=== PATIENT | male | born 1990 ===

== ENCOUNTER 2020-03-02 09:46 | Inpatient (IN) | payer OTHER ==
[~2020-03-02] VITALS: Ht 162.6 cm; Wt 84.6 kg
[2020-03-02] MEDS ORDERED: ACETAMINOPHEN 325 MG TABLET PO PRN ×2 (10:30→19:15)
[2020-03-02] MEDS ORDERED: ONDANSETRON HCL 4 MG/2 ML VIAL IVP PRN ×2 (10:30→19:15)
[2020-03-02 11:11] LABS: BASOPHILS % (AUTO) 0.5 % (0.0-2.0); HEMATOCRIT 46.1 % (41-53); HEMOGLOBIN 15.6 g/dL (13.5-17.5); LYMPHOCYTES # (AUTO) 2.1 K/uL (1.0-4.8); LYMPHOCYTES % (AUTO) 27.1 % (22.0-44.0); MEAN CORPUSCULAR HEMOGLOBIN 30.5 pg (26.0-34.0); MEAN CORPUSCULAR HGB CONC 33.8 G/dL (31.0-37.0); MEAN CORPUSCULAR VOLUME 90 fL (80-100); MONOCYTES # (AUTO) 0.6 K/uL (0.1-1.0); MONOCYTES % (AUTO) 7.8 % (2.0-9.0); NEUTROPHILS # (AUTO) 4.8 K/uL (1.8-7.7); NEUTROPHILS % (AUTO) 63.6 % (40.0-70.0); PLATELET COUNT (AUTO) 313 K/uL (150-450); RED BLOOD CELL COUNT(AUTO) 5.11 MIL/uL (4.50-5.90); RED CELL DISTRIBUTION WIDTH 14.8 % (11.5-14.5)
[2020-03-02 11:28] LABS: ANION GAP 6 mmol/L (8-16); CALCIUM, TOTAL 9.1 mg/dL (8.8-10.5); CARBON DIOXIDE 28 mmol/L (22-29); CHLORIDE 103 mmol/L (98-107); CREATININE 0.86 mg/dL (0.60-1.30); GLOMERULAR FILTR. RATE CALC > 60 mL/min (>60); GLUCOSE,RANDOM 115 mg/dL (70-110); SODIUM SERUM 137 mmol/L (136-145); UREA NITROGEN, BLOOD 8 mg/dL (7-18)
[2020-03-02 11:29] LABS: D-DIMER 0.17 mg/L FEU (0.00-0.50); PROTHROMBIN TIME 10.3 SEC (9.4-11.6)
[2020-03-02 11:36] LABS: LACTIC ACID 0.9 mmol/L (0.4-2.0)
[2020-03-02 11:46] LABS: ALANINE AMINOTRANSFERASE 124 U/L (12-78); ALBUMIN 4.1 g/dL (3.4-5.0); ALKALINE PHOSPHATASE 97 U/L (46-116); ASPARTATE AMINOTRANSFERASE 41 U/L (15-37); BILIRUBIN,TOTAL 0.8 mg/dL (0.1-1.0); CREATINE KINASE, TOTAL ONLY 51 U/L (39-308); FERRITIN 145 ng/mL (26-388); LACTATE DEHYDROGENASE 158 U/L (85-227); PHOSPHORUS 3.1 mg/dL (2.5-4.9); TOTAL PROTEIN, SERUM 7.7 g/dL (6.4-8.2)
[2020-03-02 12:06] VITALS: BP 117/76
[2020-03-02 12:13] LABS: ERYTHROCYTE SEDIMENTATION RATE 4 MM/HR (0-15)
[2020-03-02] MEDS ORDERED: BISACODYL 10 MG RECTAL RECTAL SUPPOSITORY PR PRN (19:15)
[2020-03-02] MEDS ORDERED: MAGNESIUM HYDROXIDE SUSPENSION 30 ML UDCUP PO PRN (19:15)
[2020-03-02 19:33] VITALS: BP 124/73
[2020-03-02] MEDS: ZOLPIDEM TARTRATE 5 MG TABLET PO PRN (20:49)
[2020-03-02] MEDS: DOCUSATE SODIUM 100 MG CAPSULE PO SCH (20:54)
[2020-03-02] MEDS: HEPARIN SODIUM,PORCINE 5,000 UNITS/ML VIAL SQ SCH (23:45)
[2020-03-03 05:10] VITALS: BP 119/71
[2020-03-03 08:31] VITALS: BP 124/80
[2020-03-03] MEDS: HEPARIN SODIUM,PORCINE 5,000 UNITS/ML VIAL SQ SCH ×3 (08:46→23:53)
[2020-03-03] MEDS: DOCUSATE SODIUM 100 MG CAPSULE PO SCH ×2 (08:46→20:54)
[2020-03-03 15:30] VITALS: BP 132/77
[2020-03-03 20:38] VITALS: BP 148/82
[2020-03-03] MEDS: ZOLPIDEM TARTRATE 5 MG TABLET PO PRN (20:54)
[2020-03-04 04:53] VITALS: BP 123/78
[2020-03-04] MEDS: DOCUSATE SODIUM 100 MG CAPSULE PO SCH ×2 (08:13→21:15)
[2020-03-04] MEDS: HEPARIN SODIUM,PORCINE 5,000 UNITS/ML VIAL SQ SCH ×2 (08:13→16:40)
[2020-03-04 08:19] VITALS: BP 128/83
[2020-03-04 15:35] VITALS: BP 134/76
[2020-03-04 21:01] VITALS: BP 133/78
[2020-03-04] MEDS: ZOLPIDEM TARTRATE 5 MG TABLET PO PRN (21:15)
[2020-03-05] MEDS: HEPARIN SODIUM,PORCINE 5,000 UNITS/ML VIAL SQ SCH ×4 (00:29→23:55)
[2020-03-05 04:26] VITALS: BP 122/76
[2020-03-05] MEDS: DOCUSATE SODIUM 100 MG CAPSULE PO SCH ×2 (08:44→20:43)
[2020-03-05 08:53] VITALS: BP 124/79
[2020-03-05 16:43] VITALS: BP 124/87
[2020-03-05 20:12] VITALS: BP 124/78
[2020-03-05] MEDS: ZOLPIDEM TARTRATE 5 MG TABLET PO PRN (20:43)
[2020-03-06 05:11] VITALS: BP 128/85
[2020-03-06] MEDS: HEPARIN SODIUM,PORCINE 5,000 UNITS/ML VIAL SQ SCH ×3 (07:56→23:42)
[2020-03-06] MEDS: DOCUSATE SODIUM 100 MG CAPSULE PO SCH ×2 (07:56→21:41)
[2020-03-06 16:34] VITALS: BP 129/97
[2020-03-06 20:00] VITALS: BP 118/80
[2020-03-06] MEDS: ZOLPIDEM TARTRATE 5 MG TABLET PO PRN (21:41)
[2020-03-07 04:00] VITALS: BP 131/32
[2020-03-07 08:22] VITALS: BP 125/60
[2020-03-07] MEDS: HEPARIN SODIUM,PORCINE 5,000 UNITS/ML VIAL SQ SCH ×3 (08:52→23:38)
[2020-03-07] MEDS: DOCUSATE SODIUM 100 MG CAPSULE PO SCH ×2 (11:21→19:47)
[2020-03-07 16:16] VITALS: BP 127/67
[2020-03-07 19:56] VITALS: BP 129/81
[2020-03-07] MEDS: ZOLPIDEM TARTRATE 5 MG TABLET PO PRN (23:38)
[2020-03-08 04:51] VITALS: BP 119/74
[2020-03-08 07:40] VITALS: BP 136/79
[2020-03-08] MEDS: DOCUSATE SODIUM 100 MG CAPSULE PO SCH (09:11)
[2020-03-08] MEDS: HEPARIN SODIUM,PORCINE 5,000 UNITS/ML VIAL SQ SCH ×2 (09:11→15:50)
[2020-03-08 16:10] VITALS: BP 123/81
== END 2020-03-08 16:00 | DRG 178 ==
LOC: EMS 09:49 → 6S 11:35
PROVIDERS: ADMIT Hospitalist; ATTEND Hospitalist
DX: U07.1 COVID-19 (principal); F33.2 Major depressive disorder, recurrent severe without psychotic features; F15.90 Other stimulant use, unspecified, uncomplicated; J98.8 Other specified respiratory disorders
CPT/HCPCS: 82728; 83605; 83615; 83735; 84100; 84145; 85379; 85651; 93005; J1644